=== PATIENT | male | born 1960 | race Caucasian/White ===

== ENCOUNTER 2018-01-26 07:00 | Day surgery (SDC) | payer OTHER ==
[~2018-01-26] VITALS: Ht 182.9 cm; Wt 124.7 kg
[~2018-01-26 07:00] MED LIST: ADULT LOW DOSE81 MG PO; AMARYL2 MG PO; ASPIR-LOW81 MG PO; ATORVASTATIN CA10 MG PO; BETAMETHASONE D15 G2 TOP; CHLORTHALIDONE50 MG PO; CLONIDINE HCL0.1 MG PO; DICLOFENAC POTA50 MG PO; FISH OIL 1,0001 EAC3 PO; FUROSEMIDE20 MG PO; HYDROCHLOROTHIA25 MG PO; LISINOPRIL40 MG PO; MULTI VITAMIN1 EACH PO; NORCO 10-325 T1 EACH PO; NORCO 5-325 TA1 EACH PO; OMEPRAZOLE20 MG PO; OXYCODONE HCL15 MG PO; PERCOCET 10-321 EACH PO; TRAMADOL HCL50 MG PO; VITAMIN C500 M1 PO
--- NOTE | 2018-01-26 10:02 | NUR ---
[id number]: HEPARIN GIVEN TO LOLA WINTERS CRNA TO ADMINISTER IN OR.
--- NOTE | 2018-01-26 10:55 | NUR ---
01/26/18 1055 Bhargavi [place] 1050 PATIENT ARRIVES TO PACU SITTING UP, AWAKE, TALKING APPROPRIATELY. C/O TESTICULAR PAIN. RESP EVEN AND UNLABORED, MASK AT 10LITERS, TURNED DOWN TO 6.
--- NOTE | 2018-01-26 11:57 | NUR ---
[id number]: PT ARRIVES TO DS RM 4 AWAKE AND ALERT. PT IN PAIN ON ARRIVAL. PT PROVIDED ICED WATER AND CRACKERS. SCD'S IN PLACE. CALL LIGHT PLACED ON PT LEFT SIDE. AT BEDSIDE. [id number]: PT TOLERATES PO WELL. ORAL PAIN MEDICATION GIVEN. PT RESTING QUIETLY IN BED WATCHING TV. OUT OF ROOM AND WILL RETURN WITHIN THE HOUR. NO C/O'S AT THIS TIME.
--- NOTE | 2018-01-26 12:30 | NUR ---
PT STATES PAIN IS STILL CONSTANT AND ACHING. ICE IN PLACE ON RIGHT AXILLARY SITE. PT RESTING IN BED WATCHING TV WITH NO FURTHER C/O'S AT THIS TIME.
--- NOTE | 2018-01-26 12:41 | NUR ---
PT UP TO BR WITH RN ASSIST. PT AMBULATES WELL AND VOIDS QS WITH NO PROBLEMS. PT BACK IN BED WITH CALL LIGHT AT SIDE.
[2018-01-26] MEDS ORDERED: NORCO 5-325 TA1 EACH PO (12:52)
--- NOTE | 2018-01-26 13:58 | NUR ---
[id number]: PT HAS MET DC CRITERIA. BACK AND AT PT BEDSIDE. DC INSTRUCTIONS GIVEN IN PRESENCE OF PT AND . ALL QUESTIONS ANSWERED. PAIN MEDICATION SCRIPT GIVEN TO PATIENT. VS OBTAINED PRIOR TO DC. BP WAS 175/88 AND TAKEN AGAIN APPROXIMATELY 5 MINUTES LATER AND READ 160/91. PT HAS HX OF HTN AND DID NOT TAKE ANY OF HIS MEDICATIONS PRIOR TO SURGERY. PT ADVISED TO TAKE MEDICATIONS SOON HE GOT HOME. DR. KERN NOTED ON PT SCRIPT TO RESUME ALL MEDICATIONS INCLUDING ASPIRIN TODAY. PT DC'S FROM DS UNIT RM 4 VIA WHEELCHAIR WITH .
--- NOTE | 2018-01-26 14:00 | NUR ---
PT WAS ALERT, ORIENTED AND SITTING UP IN BED. HE WAS FRIENDLY, AND SEEMED THAT HE WAS PREPARED-HAD FEW QUESTIONS. TALKED ABOUT FISHING, DECLINED PRAYER AT THIS TIME. WILL FOLLOW NEEDED
--- NOTE | 2018-01-30 07:48 | OR ---
[facility] [address], [place] [address] Signed DATE OF OPERATION: 01/26/2018 SURGEON: Deandra Kern MD PREOPERATIVE DIAGNOSES: 1. Chronic right axillary cyst. 2. Right posterolateral hemiscrotal cyst. POSTOPERATIVE DIAGNOSES: 1. Chronic right axillary cyst. 2. Right posterolateral hemiscrotal cyst. PROCEDURE: Excision of cyst x2. ESTIMATED BLOOD LOSS: None. INDICATIONS: Lissa is a 57-year-old gentleman who lost a significant amount of weight from 350 pounds down to 270 pounds. He has brought his hemoglobin A1c down to 6.1. He is now off all his diabetic medications. He is just using some arthritis medicine and his blood pressure pills. However, he has had a persistent cyst in his right axilla. It is about a centimeter in diameter. He has developed a cyst on his right hemiscrotum in the posterolateral position. He said it swelled up to size a [address] Palm had lanced it in the office and gave him Augmentin. He said it is now markedly improved. We went through this previously on his left hemiscrotum. He is very familiar with the process. We have plans then to excise both of his cyst. He understands the elliptical incision required to remove both cysts will close these primarily at the time of surgery. He understands there is risk including, but not limited to bleeding, infection, scarring, change in contour of the skin, recurrent cyst in the same or other locations as well as possible wound breakdown as he had previously. He had expressed understanding and wished to proceed. PROCEDURE NOTE: I met with Lissa and his in our preop area. We easily identified both cysts and circled them appropriately. After this, Lissa was taken into the operating room and placed in the lithotomy position with our Yellofin stirrups. He was given preoperative antibiotics along with subcutaneous heparin. He had been placed under general endotracheal tube anesthesia. After this, he was prepped and draped in the usual Electronically Signed By: DEANDRA KERN MD 01/30/18 0748 PATIENT NAME: LISSA AVERY OPERATIVE REPORT DATE OF : 60 REPORT #: [id number] PHYSICIAN: DEANDRA KERN MD PCP: ELIANE PALM MD REPORT IS CONFIDENTIAL AND NOT TO BE RELEASED WITHOUT AUTHORIZATION [facility] [address], [place] [address] Signed sterile fashion. We approached the right hemiscrotal cyst first. We used a somewhat transverse incision and excised the cyst completely full thickness and passed it off the field. Local anesthetic was copiously injected in throughout his wound. The wound was irrigated and suctioned out until clear. The dermis was reapproximated with interrupted 3-0 subcuticular Monocryl sutures. The skin edges were reapproximated with a running 6-0 fast absorbing plain gut suture. After surgery, dry gauze was placed along with his athletic supporter. After this, we moved over to his right axilla and in a similar fashion we used an oblique transverse incision to excise the cyst full thickness in the right axilla and passed it off the field. Again, the wound was infiltrated with local anesthetic and then irrigated until clear. The dermis was reapproximated with interrupted 3-0 subcuticular Monocryl sutures. The skin edges were reapproximated with a running 6-0 fast absorbing plain gut suture. Dry gauze and tape were applied to the axilla. After this, his legs were taken out of lithotomy. He was awakened from his anesthesia, extubated in the OR, and taken to recovery room in stable condition. Deandra Kern MD ALB/MODL /[id number] cc: MD Deandra Apple MD Copies: ELIANE PALM MD, ANDREW L MD ~ Electronically Signed By: DEANDRA KERN MD 01/30/18 0748 PATIENT NAME: LISSA AVERY OPERATIVE REPORT DATE OF : 60 REPORT #: [id number] PHYSICIAN: DEANDRA KERN MD PCP: ELIANE PALM MD REPORT IS CONFIDENTIAL AND NOT TO BE RELEASED WITHOUT AUTHORIZATION
== END 2018-01-26 13:30 | disposition home or self-care (01) ==
LOC: DS 07:00
PROVIDERS: Colon & Rectal Surgery
PROC: 0JB60ZZ Excision of Chest Subcutaneous Tissue and Fascia, Open Approach (ICD-10-PCS; 2018-01-26)
PROC: 0JBC0ZZ Excision of Pelvic Region Subcutaneous Tissue and Fascia, Open Approach (ICD-10-PCS; principal; 2018-01-26 08:45)
DX: L72.0 Epidermal cyst (principal); L02.411 Cutaneous abscess of right axilla; E11.9 Type 2 diabetes mellitus without complications; I10 Essential (primary) hypertension; K21.9 Gastro-esophageal reflux disease without esophagitis; E66.9 Obesity, unspecified; E78.5 Hyperlipidemia, unspecified; M19.90 Unspecified osteoarthritis, unspecified site; F17.290 Nicotine dependence, other tobacco product, uncomplicated; Z88.2 Allergy status to sulfonamides; Z68.41 Body mass index [BMI] 40.0-44.9, adult; Z79.1 Long term (current) use of non-steroidal anti-inflammatories (NSAID); Z79.82 Long term (current) use of aspirin; Z79.891 Long term (current) use of opiate analgesic; Z79.899 Other long term (current) drug therapy
CPT/HCPCS: 00920; J0690; J1100; J1644; J1885; J2250; J2270; J2405; J2704; J2765; J3010; J7120

== ENCOUNTER 2018-03-14 10:44 | Emergency (ER) | payer OTHER ==
[~2018-03-14] VITALS: Ht 182.9 cm; Wt 124.7 kg
[2018-03-14] MEDS ORDERED: ELIQUIS5 MG PO (15:09)
== END 2018-03-14 15:24 | disposition home or self-care (01) ==
LOC: ED 10:44
DX: I82.401 Acute embolism and thrombosis of unspecified deep veins of right lower extremity (principal); I26.99 Other pulmonary embolism without acute cor pulmonale; I10 Essential (primary) hypertension; E78.5 Hyperlipidemia, unspecified; F17.200 Nicotine dependence, unspecified, uncomplicated; Z88.2 Allergy status to sulfonamides; Z79.899 Other long term (current) drug therapy; Z79.82 Long term (current) use of aspirin; Z79.891 Long term (current) use of opiate analgesic
CPT/HCPCS: 71046; 80053; 85025; 85379; 85610; 85730; 93971; 99284

== ENCOUNTER 2021-08-16 14:33 | Emergency (ER) | payer OTHER ==
[~2021-08-16] VITALS: Ht 182.9 cm; Wt 124.7 kg
[~2021-08-16 14:33] MED LIST changes: +ELIQUIS5 MG PO
[2021-08-16] MEDS ORDERED: LISINOPRIL-HCT1 EAC1 PO (14:52)
[2021-08-16] MEDS ORDERED: GLIMEPIRIDE4 MG PO (14:52)
--- NOTE | 2021-08-17 17:05 | EKG ---
[facility] [address] [facility] [place], [place] [address] Signed Normal sinus rhythm Normal ECG When compared with ECG of 24-JAN-2018 08:15, No significant change was found Confirmed by AGUEDA HURTADO DO ([id number]) on 08/17/2021 5:05:48 PM Electronically Signed By: AGUEDA HURTADO DO 08/17/21 1705 PATIENT NAME: LISSA AVERY Electrocardiogram DATE OF : 60 PHYSICIAN: AGUEDA HURTADO DO REPORT #: [id number] REPORT IS CONFIDENTIAL AND NOT TO BE RELEASED WITHOUT AUTHORIZATION
== END 2021-08-16 17:56 | disposition short-term general hospital (02) ==
LOC: ED 14:33
DX: I21.4 Non-ST elevation (NSTEMI) myocardial infarction (principal); Z20.822 Contact with and (suspected) exposure to COVID-19; I10 Essential (primary) hypertension; E78.5 Hyperlipidemia, unspecified; F17.200 Nicotine dependence, unspecified, uncomplicated; Z88.2 Allergy status to sulfonamides; Z79.899 Other long term (current) drug therapy
CPT/HCPCS: 71045; 80053; 83735; 84484; 85025; 93005; 93010; 96374; 99285-25; C9803; J1644; U0003

== ENCOUNTER 2024-03-22 19:49 | Emergency (ER) | payer OTHER ==
[~2024-03-22] VITALS: Ht 182.9 cm; Wt 125.7 kg
[~2024-03-22 19:49] MED LIST changes: +GLIMEPIRIDE4 MG PO; +LISINOPRIL-HCT1 EAC1 PO
--- OUTSIDE RECORDS SUMMARY | 2024-03-22 19:50 | XMS ---
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 EBrielle VISIT COUNT (12 MO.) 1 ALEKSANDAR [facility] TOTAL 1 NOTE: Visits indicate total known visits. ED/UCC VISIT TRACKING (12 MO.) 03/22/2024 19:50 [facility] TYPE: Emergency COMPLAINT: - R FINGER WOUND INPATIENT VISIT TRACKING (12 MO.) No inpatient visits to display in this time frame [email or web address]
[2024-03-22] MEDS ORDERED: METOPROLOL SUCC25 MG PO (20:15)
[2024-03-22] MEDS ORDERED: LIPITOR80 MG PO (20:15)
[2024-03-22] MEDS ORDERED: DIPHTH,PERTUSS(ACELL),TET VAC 0.5 ML SYRINGE IM ONE (20:30)
[2024-03-22 21:54] VITALS: BP 138/95
== END 2024-03-22 21:55 | disposition home or self-care (01) ==
LOC: ED 19:49
DX: S61.210A Laceration without foreign body of right index finger without damage to nail, initial encounter (principal); W26.0XXA Contact with knife, initial encounter; I10 Essential (primary) hypertension; E78.5 Hyperlipidemia, unspecified; F17.200 Nicotine dependence, unspecified, uncomplicated; Z88.2 Allergy status to sulfonamides; Z88.0 Allergy status to penicillin; Z79.84 Long term (current) use of oral hypoglycemic drugs; Z79.899 Other long term (current) drug therapy
CPT/HCPCS: 90715